=== PATIENT | male | born 1990 | race Two or more races ===

== ENCOUNTER 2019-11-19 13:01 | Emergency (ER) | payer OTHER ==
[~2019-11-19] VITALS: Ht 167.6 cm; Wt 72.6 kg
[2019-11-19 13:14] VITALS: Ht 167.6 cm; Wt 72.6 kg
[2019-11-19 13:59] LABS: BASOPHIL % 0.2 % (0-2); PLATELET COUNT 220 x10^3mcL (130-400); RED CELL DISTRIBUTION WIDTH 12.5 % (11.5-14.5)
[2019-11-19 14:17] LABS: CARBON DIOXIDE 26.5 mmol/L (21-32); CHLORIDE SERUM 107 mmol/L (98-107); GLUCOSE SERUM 99 mg/dL (74-106); POTASSIUM SERUM 3.9 mmol/L (3.5-5.1); SODIUM SERUM 143 mmol/L (136-145)
[2019-11-19 14:18] LABS: ALKALINE PHOSPHATASE 56 U/L (46-116); ALT/SGPT 27 U/L (16-63); AST/SGOT 14 U/L (15-37); BILIRUBIN DIRECT 0.09 mg/dL (0.0-0.2); BILIRUBIN TOTAL 0.3 mg/dL (0.20-1.00); CALCIUM 8.4 mg/dL (8.5-10.1); GFR1 > 60 mL/min; LIPASE 197 IU/L (73-393); TOTAL PROTEIN, SERUM 6.8 g/dL (6.4-8.2)
[2019-11-19 14:55] VITALS: BP 114/69
== END 2019-11-19 14:42 | disposition home or self-care (01) ==
LOC: ED 13:01
PROVIDERS: Emergency Medicine
DX: E86.0 Dehydration (principal); R55 Syncope and collapse; Z88.0 Allergy status to penicillin
CPT/HCPCS: Q0092